=== PATIENT | male | born 1985 | race Caucasian/White ===

== ENCOUNTER 2019-06-05 00:12 | Emergency (ER) | payer OTHER ==
[~2019-06-05] VITALS: Ht 172.7 cm; Wt 68.0 kg
--- NOTE | 2019-06-05 00:35 | NUR ---
ED Nurse Note: Recieved pt BIBA from [facility] with c/o possible overdose, pt is awake, alert and oriented x 4, and refuses to disclose any further information, just states he wants to leave, pt is ambulatory, denies cp or any pain, no sob or labored breathing, spouse is present with pt, will wait for pt to be seen by md and resume care.
--- NOTE | 2019-06-05 01:11 | Emergency Room Report ---
History of Present Illness General Chief Complaint: Substance Abuse Source: Patient, Friend, EMS Present Illness HPI Is a 34-year-old male who presents with chief complaint of altered mental status. He and his friend were at a club and he was unresponsive so the bouncer called 911. Initially his friend refused to give the name. Said he has no idea on him. When he got here magically, he produced a wallet and given ID. Patient was sleeping and now awake. He said that he was just sleepy. He denies any drug use. Denies any GHB ingestion. He said he was just partying with his friend all day and was tired. Denies any other complaint. Just admit to marijuana. No suicidal thoughts or homicidal thought. Allergies: Coded Allergies: UNABLE TO ASSESS (Unverified , 06/05/19) Patient History Past Medical History: see triage record, old chart reviewed Past Surgical History: none Pertinent Family History: none Social History: Denies: smoking Immunizations: other Reviewed Nursing Documentation: PMH: Agreed; PSxH: Agreed Nursing Documentation-PMH Past Medical History: No Stated History Review of Systems Eye: Denies: eye pain, blurred vision ENT: Denies: ear pain, nose congestion, throat swelling Respiratory: Denies: cough, shortness of breath Cardiovascular: Denies: chest pain, palpitations Gastrointestinal: Denies: abdominal pain, diarrhea, nausea, vomiting Musculoskeletal: Denies: back pain, joint pain Skin: Denies: rash Neurological: Denies: headache, numbness Endocrine: Denies: increased thirst, increased urine Hematologic/Lymphatic: Denies: easy bruising All Other Systems: negative except mentioned in HPI Physical Exam Vital Signs Date Time Temp Pulse Resp B/P (MAP) Pulse Ox O2 Delivery O2 Flow Rate FiO2 06/05/19 00:09 98.2 88 18 140/82 (101) 98 Room Air Vitals normal Sp02 EP Interpretation: reviewed, normal General Appearance: well appearing, no apparent distress, alert Head: normocephalic, atraumatic Eyes: bilateral eye PERRL, bilateral eye EOMI ENT: hearing grossly normal, normal pharynx Neck: full range of motion, supple, no meningismus Respiratory: chest non-tender, lungs clear, normal breath sounds Cardiovascular #1: regular rate, rhythm, no murmur Gastrointestinal: normal bowel sounds, non tender, no mass, no organomegaly, no bruit, non-distended Musculoskeletal: back normal, normal range of motion, gait/station normal Psychiatric: mood/affect normal Medical Decision Making Diagnostic Impression: Primary Impression: Substance abuse ER Course Patient presents with altered mental status. he woke up without any intervention after prolonged period of passing out. This most likely GHB ingestion. Patient denies this. He is stable now. Wants to go home. Will discharge home. I see no evidence of opioid ingestion since pupils were not pinpoint. He did not require any Narcan. Accu-Chek was normal. Last Vital Signs Date Time Temp Pulse Resp B/P (MAP) Pulse Ox O2 Delivery O2 Flow Rate FiO2 06/05/19 00:09 98.2 88 18 140/82 (101) 98 Room Air Status: improved Disposition: HOME, SELF-CARE Condition: Stable Patient Instructions: Substance Use Disorder Additional Instructions: Abstain from drugs and alcohol. Follow-up with in 7 days but return if worse. Marco Lopez MD Jun 05, 2019 01:11
--- NOTE | 2019-06-05 01:15 | NUR ---
ER DISCHARGE NOTE: Patient is cleared to be discharged per ERMD, pt is aox4, on room air, with stable vital signs. pt was given dc instructions, pt was able to verbalize understanding, pt id band removed without complications. pt is able to ambulate with steady gait. pt took all belongings.
[2019-06-05 01:20] VITALS: BP 140/82
== END 2019-06-05 01:20 | disposition home or self-care (01) ==
LOC: EDBD 00:12 → EMR 00:37
DX: F19.10 Other psychoactive substance abuse, uncomplicated (principal)
CPT/HCPCS: 99281